=== PATIENT | male | born 1950 | race Caucasian/White ===

== ENCOUNTER 2018-09-06 02:35 | Observation (INO) | payer MEDICARE ==
[~2018-09-06] VITALS: Ht 170.2 cm; Wt 80.3 kg
[2018-09-06] MEDS ORDERED: ACETAMINOPHEN500 MG PO (05:39)
[2018-09-06] MEDS ORDERED: ALLO300 PO (05:40)
[2018-09-06] MEDS ORDERED: BUPR100 PO (05:40)
[2018-09-06] MEDS ORDERED: CALC.25 PO (05:41)
[2018-09-06] MEDS ORDERED: Oyster Shell C500 MG PO (05:42)
[2018-09-06] MEDS ORDERED: ALLERGY10 MG PO (05:42)
[2018-09-06] MEDS ORDERED: Fergon240 M1 PO (05:42)
[2018-09-06] MEDS ORDERED: THERA1 EACH PO (05:43)
[2018-09-06] MEDS ORDERED: MAGOXI400 PO (05:43)
[2018-09-06] MEDS ORDERED: Prozac20 MG PO (05:43)
[2018-09-06] MEDS ORDERED: OXYC5 PO (05:44)
[2018-09-06] MEDS ORDERED: Prilosec Otc20 MG PO (05:44)
[2018-09-06] MEDS ORDERED: OXYC30 PO (05:46)
[2018-09-06] MEDS ORDERED: MIRALAX119 GM (05:47)
[2018-09-06] MEDS ORDERED: TAMS.4ER PO (05:48)
[2018-09-06] MEDS ORDERED: TRAZ50 PO (05:48)
[2018-09-06] MEDS ORDERED: SODBIC650 PO (05:48)
[2018-09-06] MEDS ORDERED: Valium5 MG PO (07:09)
== END 2018-09-06 09:06 | disposition home or self-care (01) ==
LOC: ER 02:35 → EOR 02:36
PROVIDERS: ADMIT Emergency Medicine
DX: F41.9 Anxiety disorder, unspecified (principal); Z79.899 Other long term (current) drug therapy
CPT/HCPCS: 99284; A9270-GY; G0378